=== PATIENT | male | born 1980 | race Caucasian/White ===

== ENCOUNTER 2020-08-16 22:57 | Emergency (ER) | payer OTHER ==
[2020-08-16] MEDS ORDERED: fentaNYL 100 MCG/2 ML SDV IM ONE (23:28)
--- NOTE | 2020-08-16 23:32 | EDM.PDOC ---
ED HPI GENERAL MEDICAL PROBLEM - General Chief Complaint: Chest Pain Stated Complaint: RIGHT SIDE PAIN Time Seen by Provider: 08/16/20 23:24 Source of Information: Reports: Patient, Family, RN Notes Reviewed History Limitations: Reports: No Limitations - History of Present Illness INITIAL COMMENTS - FREE TEXT/NARRATIVE: 39-year-old gentleman presents emergency department today with sudden onset of right-sided chest pain, he injured himself when he sneezed really hard sudden onset of pain that starts in the back radiates around to the front no nausea or vomiting no shortness of breath no diaphoresis Right Abdominal Pain Score (Numeric/FACES): 7 - Related Data Allergies Allergy/AdvReac Type Severity Reaction Status Date / Time iodine Allergy Rash Verified 08/16/20 23:08 promethazine [From Phenergan] Allergy Anaphylactic Verified 08/16/20 23:08 Shock tramadol Allergy Tachycardia Verified 08/16/20 23:08 Home Meds: Home Meds Diltiazem [Cardizem SR] 1 tab PO ASDIRECTED PRN 08/16/20 [History] Losartan/Hydrochlorothiazide [Losartan-HCTZ 100-25 MG] 1 tab PO DAILY 08/16/20 [History] Omeprazole 1 tab PO DAILY 08/16/20 [History] Past Medical History Cardiovascular History: Reports: Hypertension, Other (See Below) Other Cardiovascular History: SVT Genitourinary History: Reports: Renal Calculus Musculoskeletal History: Reports: Fracture - Infectious Disease History Infectious Disease History: Reports: Chicken Pox - Past Surgical History Cardiovascular Surgical History: Reports: None Social & Family History - Family History Family Medical History: No Pertinent Family History - Tobacco Use Tobacco Use Status *Q: Current Every Day Tobacco User Years of Tobacco use: 10 Packs/Tins Daily: 0.5 - Caffeine Use Caffeine Use: Reports: Soda - Recreational Drug Use Recreational Drug Use: No ED ROS GENERAL - Review of Systems Review Of Systems: See Below Respiratory: Reports: No Symptoms Cardiovascular: Reports: Chest Pain GI/Abdominal: Reports: No Symptoms ED EXAM, GENERAL - Physical Exam Exam: See Below Exam Limited By: No Limitations General Appearance: Alert, WD/WN, No Apparent Distress Respiratory/Chest: No Respiratory Distress, Lungs Clear, Normal Breath Sounds, No Accessory Muscle Use, Chest Non-Tender Cardiovascular: Regular Rate, Rhythm, No Murmur Back Exam: Normal Inspection, Full Range of Motion, Paraspinal Tenderness (Right side). No: CVA Tenderness (R), CVA Tenderness (L) Course - Vital Signs Last Recorded V/S: Last Vital Signs Temp 98.2 F 08/16/20 23:14 Pulse 96 08/16/20 23:14 Resp 18 08/16/20 23:14 BP 157/102 H 08/16/20 23:14 Pulse Ox 96 08/16/20 23:14 - Orders/Labs/Meds Orders: Active Orders 24 hr Category Date Time Status Chest 2V [CR] Urgent Exams 08/16/20 23:28 Taken Labs: Laboratory Tests 08/17/20 Range/Units 00:05 Urine Color Yellow (YELLOW) Urine Appearance Clear (CLEAR) Urine pH 5.5 (5.0-8.0) Ur Specific [place] 1.010 (1.008-1.030) Urine Protein Negative (NEGATIVE) mg/dL Urine Glucose (UA) Negative (NEGATIVE) mg/dL Urine Ketones Negative (NEGATIVE) mg/dL Urine Occult Blood Negative (NEGATIVE) Urine Nitrite Negative (NEGATIVE) Urine Bilirubin Negative (NEGATIVE) Urine Urobilinogen 0.2 (0.2-1.0) EU/dL Ur Leukocyte Esterase Negative (NEGATIVE) Urine RBC 0-5 (0-5) Urine WBC 0-5 (0-5) Ur Epithelial Cells Not seen Amorphous Sediment Not seen Urine Bacteria Rare Urine Mucus Not seen Meds: Medications Discontinued Medications Generic Name Dose Route Start Last Admin Trade Name Freq PRN Reason Stop Dose Admin Fentanyl 50 mcg 08/16/20 23:28 08/16/20 23:37 Fentanyl 100 Mcg/2 Ml Sdv IM 08/16/20 23:29 50 mcg ONETIME ONE Administration Departure - Departure Time of Disposition: 00:35 Disposition: Home, Self-Care 01 Condition: Fair Clinical Impression: Pulled muscle Instructions: Nonspecific Chest Pain, Adult, [id number] Referrals: PCP,None [Primary Care Provider] - Forms: ED Department Discharge Additional Instructions: Continue to use hydrocodone as needed for pain control, please followup with your primary care provider in 3-5 days if not better, please call return to the emergency department with worsening of symptoms. Sepsis Event Note (ED) - Evaluation Sepsis Screening Result: No Definite Risk - Focused Exam Vital Signs: Vital Signs Temp Pulse Resp BP Pulse Ox 08/16/20 23:14 98.2 F 96 18 157/102 H 96 - My Orders Last 24 Hours: My Active Orders 08/16/20 23:28 Chest 2V [CR] Urgent - Assessment/Plan Last 24 Hours: My Active Orders 08/16/20 23:28 Chest 2V [CR] Urgent Plan: Assessment Acuity = acute Site and laterality = muscle pull chest wall Etiology = secondary to sneezing Manifestations = none Location of injury = Home Lab values = chest x-ray I did review films myself I cannot appreciate any acute process, the official read from radiology is pending, urinalysis unremarkable Plan Good improvement with fentanyl provided in the emergency department, discharged home hydrocodone 5/325 1 tab p.o. 3 times daily. To obtain primary care 3 to 5 days if no better This note was dictated using [email or web address] voice recognition software please call with any questions on syntax or grammar.
--- NOTE | 2020-08-18 09:54 | CR ---
CHEST: 2 view CLINICAL HISTORY:Chest pain COMPARISON:None FINDINGS: The heart size, pulmonary vascularity and hilar structures are normal. No infiltrate effusion or pneumothorax is seen. IMPRESSION: No acute cardiopulmonary process.
== END 2020-08-17 00:47 | disposition home or self-care (01) ==
LOC: JP.ED 22:57
DX: S29.011A Strain of muscle and tendon of front wall of thorax, initial encounter (principal); I10 Essential (primary) hypertension; Z79.899 Other long term (current) drug therapy; Z72.0 Tobacco use; Z91.048 Other nonmedicinal substance allergy status; Z88.5 Allergy status to narcotic agent; Z88.8 Allergy status to other drugs, medicaments and biological substances; X58.XXXA Exposure to other specified factors, initial encounter
CPT/HCPCS: 71046; 81001; 96372; 99283; 99285; J3010